=== PATIENT | female | born 2000 | race Asian ===

== ENCOUNTER 2025-10-03 02:37 | Emergency (ER) | payer MEDICAID, SELFPAY ==
[2025-10-03 03:08] VITALS: BP 111/77; PULSE 87; RESP 17; TEMP 36.8; O2SAT 96
[2025-10-03] MEDS: ONDANSETRON ODT 4 MG TABRAP PO (03:34)
[2025-10-03 03:36] LABS: Collection Type, Urine Voided
[2025-10-03 03:47] LABS: Bilirubin,Urine Negative (Negative); Blood,Urine Negative (Negative); Clarity,Urine Clear (Clear/Hazy); Color,Urine Lt-Yellow (Lt Yel-Yel); Glucose, Urine Negative (Negative); Ketones,Urine Negative (Negative); Leukocyte Esterase,Urine Negative (Negative); Nitrite,Urine Negative (Negative); PH,Urine 8.0 (5.0-7.0); Protein,Urine Trace (Neg - Trace); RBC,Urine 7 /hpf (0-3); Specific Gravity,Urine 1.035 (1.001-1.035); Squamous Epithelial Cell,Urine 4 /hpf (0-5); Urobilinogen,Urine Negative mg/dL (0.0-1.0); WBC,Urine 2 /hpf (0-5)
[2025-10-03 03:48] LABS: HCG Qualitative,Urine Negative
--- NOTE | 2025-10-03 04:11 | EDNOTE_ITS ---
Nausea/Vomit./Diarrhea-RME/HPI General Chief complaint: Nausea/Vomiting/Diarrhea Stated complaint: VOMITING Time Seen by Provider: 10/03/25 03:10 Arrival date/time: 10/03/25 02:37 This is a case of 25-year-old female with no medical history came in in the emergency room due to vomiting nonprojectile twice last night no diarrhea no respiratory symptoms denies any painful urination or any urinary symptoms no cough no nasal congestion no abdominal pain no diarrhea no constipation patient denies Nestl? persistence of the symptoms this patient decided to sought consult here in the emergency room Limitations: no limitations Related Data Previous Rx's ?Medication ?Instructions ?Recorded ondansetron 4 mg disintegrating 4 mg PO Q8H #20 tabs 1 12/04/24 tablet Allergies Allergy/AdvReac Type Severity Reaction Status Date / Time No Known Allergies Allergy Verified 10/03/25 02:43 Review of Systems Review of Systems Systems Reviewed: All systems reviewed, normal except as documented Constitutional Constitutional: Reports system reviewed and no additional complaints, except as documented and Reports as per HPI Cardiovascular Cardiovascular: Reports system reviewed and no additional complaints, except as documented and Reports as per HPI Respiratory Respiratory: Reports system reviewed and no additional complaints, except as documented and Reports as per HPI Gastrointestinal Gastrointestinal: Reports system reviewed and no additional complaints, except as documented and Reports as per HPI Musculoskeletal Musculoskeletal: Reports system reviewed and no additional complaints, except as documented and Reports as per HPI Neurologic Neurologic: Reports system reviewed and no additional complaints, except as documented and Reports as per HPI Past Medical History Social History SMOKING STATUS: Never smoker ED Exam General Limitations: Present no limitations General appearance: Present alert, in no apparent distress and other (Patient is awake alert oriented not in distress nontoxic looking well-hydrated well- nourished) Head Head exam: Present atraumatic, normocephalic and normal inspection Eye Eye exam: Present normal appearance, PERRL and EOMI ENT ENT exam: Present normal exam, normal oropharynx, mucous membranes moist and other (HEENT exam is normal and unremarkable) Neck Neck exam: Present normal inspection, full ROM, trachea midline and other (Negative for meningeal sign); Absent tenderness, meningismus, lymphadenopathy or thyromegaly Chest Chest inspection: Present normal inspection and symmetric chest wall rise; Absent tenderness Respiratory Respiratory exam: Present normal lung sounds bilaterally; Absent respiratory distress, wheezes, stridor, accessory muscle use or prolonged expiratory phase Cardiovascular Cardiovascular exam: Present regular rate, normal rhythm and normal heart sounds; Absent bradycardia, tachycardia, irregular rhythm, systolic murmur or diastolic murmur Abdominal Exam Abdominal exam: Present soft and normal bowel sounds; Absent distention, tenderness, guarding, rebound, rigidity, diminished bowel sounds, hyperactive bowel sounds, hypoactive bowel sounds, organomegaly, psoas sign, Fowler's sign, Rovsing's sign, tenderness at McBurney's Point or hernia Extremities Exam Extremities exam: Present normal inspection and full ROM Back Exam Back exam: Present normal inspection and full ROM Neurological Exam Neurological exam: Present alert, oriented X3, CN II-XII intact, normal gait and reflexes normal; Absent motor sensory deficit Psychiatric Psychiatric exam: Present normal affect and normal mood Skin Skin exam: Present warm, dry, intact, normal color and other (Excellent skin turgor) Course Quality Measures none Orders Category Date Time Status HCG Qualitative,Urine Stat Lab 10/03/25 03:30 Completed Urinalysis Stat Lab 10/03/25 03:30 Completed Ondansetron Odt [Zofran Odt] Med 10/03/25 03:23 Discontinued 4 mg PO X1 ONE Vital Signs Vital signs: Vital Signs Temperature 98.3 F 10/03/25 03:08 Pulse Rate 87 10/03/25 03:08 Respiratory Rate 17 10/03/25 03:08 Blood Pressure 111/77 10/03/25 03:08 Pulse Oximetry (%) 96 10/03/25 03:08 Oxygen Delivery Method Room Air 10/03/25 03:08 Oxygen saturation is 96% in room air Nausea/Vomiting/Diarrhea MDM Narrative MDM Narrative:: This is a case of 25-year-old female with no medical history came in in the emergency room due to vomiting nonprojectile twice last night no diarrhea no respiratory symptoms denies any painful urination or any urinary symptoms no cough no nasal congestion no abdominal pain no diarrhea no constipation patient denies Nestl? persistence of the symptoms this patient decided to sought consult here in the emergency room physical examination patient is awake alert oriented not in distress nontoxic looking well-hydrated well nourished excellent skin turgor lungs sound is clear no crackles no rales no retraction no stridor HEENT exam is normal and unremarkable abdominal exam is benign nonsurgical no guarding no rebound no rigidity negative psoas negative straight and negative Rovsing's negative McBurney's negative Fowler sign negative CVA tenderness patient family is also here with the same symptoms I did a COVID flu to one of his children and it was negative patient hCG is negative patient urinalysis is normal no urinary tract infection patient was given Zofran here in the emergency room after 30 minutes oral fluid challenge was given patient tolerated well no recurrence of vomiting no abdominal pain patient will follow-up with PCP in 2 days for evaluation for any worsening symptoms or any emergent concern return precaution in the ER is a advise advised no signs and symptoms of sepsis dehydration or hypoxia no acute abdomen vital signs stable Patient was discharged with comfortable condition walking with stable gait. Patient verbalized no further complains explained diagnosis and answered patient question. Patient is comfortable with the proposed management plan including the need to follow up with his/her primary care physician and any specialist if applicable Discussed patient for any urgent condition or worsening sx, He/She needed to go to emergency room immediately or call 911. Patient acknowledge the responsibility to follow up as instructed and to monitor her/his symptoms. For any persistence of the symptoms for more than 3-5 days return precaution advised. Discussed the result of the test and was given printed discharge instruction Patient data External records reviewed:: [facility] previous records Clinical information provided by:: patient Social determinants that could affect healthcare access:: none Patient has the following chronic illnesses:: None How is presenting disease/condition affected by chronic disease/condition?: no chronic disease Evaluation data The following diagnostics were reviewed and interpreted by me:: lab results Lab and/or radiology exams considered but not ordered:: Reviewed Interpretation Summary: Reviewed Medications / Prescriptions Medications / Prescriptions considered but not ordered:: Give Medication administrations:: Medication Administration History Discontinued Medications Ondansetron HCl (Ondansetron Odt 4 Mg Tabrap) 4 mg PO X1 ONE; Protocol Stop: 10/03/25 03:24 Last Admin: 10/03/25 03:34 Dose: 4 mg Documented By: OA Given Consultations Consultation(s) initiated? (list below): No Diagnosis Nausea Differential Diagnosis: food poisoning and gastroenteritis Most likely diagnosis given after review of the tests above:: Vomiting Admission Indicated Admission indicated?: not indicated Explain why admission is indicated or not indicated:: Not indicated Admission Request Was there a request for admission?: No Admission Attestation Admission request attestation: Not indicated Disposition Plan Disposition Plan: Discharge Discharge Attestation Discharge Attestation: The patient and all family members were given an opportunity to ask questions and understood the discharge instructions. Discharge instructions specifically effects, indications for sooner follow up or return to the emergency department, and the expected course of current diagnosis. Patient condition: Stable Discharge Plan Plan Patient Disposition: HOME (Self Care) Patient condition on transfer: Stable Prescriptions/Referrals Prescriptions/Med Rec: New ondansetron 4 mg tablet,disintegrating 4 mg PO Q8H Qty: 20 0RF Problem List Clinical Impression: Vomiting Patient/Caregiver Discharge Instructions Education Materials: ED Diet for Vomiting or ..., ED Vomiting (Adult) Additional Instructions: Follow-up with your primary care physician in 2 days for reevaluation worsening symptoms or any emergent concern call 911 or go to the nearest emergency room Pedialyte Gatorade for every bouts of vomiting keep hydrated increase water increase water intake Print Language: [place] Stand Alone Forms: Rosita Award Info., Patient Portal Info Letter LATANYA/JEAN-CLAUDE Supervising Physician LATANYA/JEAN-CLAUDE Supervising Physician: Dr. Calles
== END 2025-10-03 04:37 | disposition home or self-care (01) ==
LOC: SERX 05:37
PROVIDERS: Nurse Practitioner Family; Emergency Provider Emergency Medicine; PCP Family Medicine
DX: R11.2 Nausea with vomiting, unspecified (principal)
CPT/HCPCS: 81001; 81025; 99282; Q0162